=== PATIENT | female | born 1990 | race American Indian/Alaskan Native ===

== ENCOUNTER 2021-06-01 09:57 | Emergency (ER) | payer MEDICAID ==
[2021-06-01] MEDS ORDERED: SODIUM CHLORIDE 0.9% 1000 ML 2,000 ML IV ONE (12:08)
[2021-06-01] MEDS ORDERED: METOCLOPRAMIDE 10 MG/2 ML INJ IV ONE (12:08)
[2021-06-01] MEDS ORDERED: MORPHINE 4 MG/1 ML INJ IV ONE (12:08)
--- NOTE | 2021-06-01 12:09 | Emergency Department Report ---
ED N/V/D HPI - General Chief complaint: Nausea/Vomiting/Diarrhea Stated complaint: N/V Time Seen by Provider: 06/01/21 11:42 Source: patient, EMS Mode of arrival: Stretcher Limitations: No Limitations - History of Present Illness Initial comments: 30-year-old female who has a past medical history of diabetes and history of DKA presents to the ER via EMS with complaints of nausea and vomiting. Patient states that symptoms started yesterday. Patient states that she went to [facility] for symptoms yesterday, she was treated in the ER and given IV meds and fluids. She states that she was told she has hyperglycemia but she was not in DKA and was discharged home. She states that she was not prescribed anything to go home with. She states that when she left the hospital she was feeling better, but she stated that her symptoms started again this morning with nausea, vomiting and she is also been having diarrhea since yesterday. She also reports diffuse abdominal pain. She denies any fever or chills at home. She denies any ill contacts, bad food intake or recent antibiotic use. She status post C-sections but no other abdominal surgeries. Denies any illicit drug use or alcohol abuse. MD complaint: nausea, vomiting, diarrhea, abdominal pain -: days(s) (1) - Related Data Previous Rx's Medication Instructions Recorded Last Taken Type Ondansetron [Zofran Odt] 4 mg PO Q8HR #15 tab.rapdis 06/01/21 Unknown Rx Promethazine HCl [Phenergan SUPPOS] 25 mg RC Q6HR #20 supp.rect 06/01/21 Unknown Rx Allergies Allergy/AdvReac Type Severity Reaction Status Date / Time No Known Allergies Allergy Unverified 06/01/21 09:59 ED Review of Systems ROS: Stated complaint: N/V Other details as noted in HPI Comment: All other systems reviewed and negative Constitutional: malaise, weakness. denies: chills, fever ENT: as per HPI. denies: ear pain, throat pain, dental pain, hearing loss, epistaxis, congestion Respiratory: denies: cough, shortness of breath, wheezing Gastrointestinal: abdominal pain, nausea, vomiting, diarrhea. denies: constipation, hematemesis, melena, hematochezia Genitourinary: denies: urgency, dysuria, discharge Musculoskeletal: denies: back pain, joint swelling, arthralgia Neurological: as per HPI, weakness. denies: numbness, paresthesias, confusion, abnormal gait, vertigo Psychiatric: denies: anxiety, depression, auditory hallucinations, visual hallucinations, homicidal thoughts, suicidal thoughts Hematological/Lymphatic: denies: easy bleeding, easy bruising, swollen glands ED Past Medical Hx - Medications Home Medications: Home Medications Medication Instructions Recorded Confirmed Last Taken Type Ondansetron [Zofran Odt] 4 mg PO Q8HR #15 tab.rapdis 06/01/21 Unknown Rx Promethazine HCl [Phenergan SUPPOS] 25 mg RC Q6HR #20 supp.rect 06/01/21 Unknown Rx ED Physical Exam - General Limitations: No Limitations General appearance: alert, in distress (Patient appears uncomfortable, she is actively pacing in the room and vomiting.) - Head Head exam: Present: atraumatic, normocephalic, normal inspection - Eye Eye exam: Present: normal appearance, PERRL, EOMI Pupils: Present: normal accommodation - ENT ENT exam: Present: mucous membranes dry - Neck Neck exam: Present: normal inspection, full ROM - Respiratory Respiratory exam: Present: normal lung sounds bilaterally. Absent: respiratory distress, wheezes, rales, rhonchi - Cardiovascular Cardiovascular Exam: Present: regular rate, normal rhythm, normal heart sounds - GI/Abdominal GI/Abdominal exam: Present: soft. Absent: distended, tenderness, guarding, rebound - Neurological Exam Neurological exam: Present: alert, oriented X3, CN II-XII intact, normal gait - Psychiatric Psychiatric exam: Present: normal affect, normal mood - Skin Skin exam: Present: intact ED Course Vital Signs 06/01/21 06/01/21 09:59 17:33 Temperature 98.0 F 98.4 F Pulse Rate 51 L 70 Respiratory 18 16 Rate Blood Pressure 143/60 110/62 [Left] O2 Sat by Pulse 100 100 Oximetry ED Medical Decision Making - Lab Data Result diagrams: 06/01/21 12:29 06/01/21 12:29 - Medical Decision Making 1554: Patient reports feeling somewhat better after meds and IV fluids. She has not had any vomiting since receiving medications. She was able to tolerate ice chips. Is currently laying down comfortably on the bed. She is not toxic or significantly ill-appearing. She is not in any significant distress. She has a nonsurgical abdominal exam. She is neurologically intact with a normal gait. All labs reviewed --white count normal, her work-up does not suggest DKA, no significant electrolyte abnormalities or significant dehydration, renal functions and liver functions are normal. Her urinalysis shows yeast but otherwise suggests more contamination than a true UTI. Reflex culture was orde red by labs and is pending. hCG is negative. Patient is hemodynamically stable. Her vital signs are stable. Discussed all lab results, suspected diagnosis and treatment plan with patient. She will be discharged home with antiemetics. She was encouraged to follow-up closely with her PCP but she understands to return to the ER if her symptoms worsens in any way. Critical care attestation.: If time is entered above; I have spent that time in minutes in the direct care of this critically ill patient, excluding procedure time. ED Disposition Clinical Impression: Gastroparesis, Gastroenteritis Disposition: 01 HOME / SELF CARE / HOMELESS Is pt being admited?: No Does the pt Need Aspirin: No Condition: Stable Instructions: Viral Gastroenteritis, Adult, [id number], Gastroparesis, Polk Diet Additional Instructions: I recommend taking the zofran as prescribed to help with nausea and vomiting. You can also use the Phenergan suppository for additional nausea vomiting contro l your Zofran is not working. You can take Imodium [id number] for any diarrhea. I recommend that you continue to try to drink lots of fluids. You can follow the bland diet instructions listed on the discharge instructions. Follow- up closely with your PCP next week. Return to the ER for symptoms worsens in any way. Prescriptions: Promethazine HCl [Phenergan SUPPOS] 25 mg RC Q6HR #20 supp.rect Ondansetron [Zofran Odt] 4 mg PO Q8HR #15 tab.rapdis Referrals: PRIMARY CARE [Primary Care Provider] - 3-5 Days Forms: Work/School Release Form(ED) Time of Disposition: 15:51
[2021-06-01 12:47] LABS: Basophils % (Auto) 0.4 % (0.0-1.8); Hematocrit 40.8 % (30.3-42.9); Hemoglobin 12.9 gm/dl (10.1-14.3); Lymphocytes # (Auto) 0.9 K/mm3 (1.2-5.4); Lymphocytes % (Auto) 15.9 % (13.4-35.0); Mean Corpuscular HGB Conc 32 % (30-34); Mean Corpuscular Volume 97 fl (79-97); Monocytes # (Auto) 0.5 K/mm3 (0.0-0.8); Monocytes % (Auto) 8.1 % (0.0-7.3); Platelet Count 286 K/mm3 (140-440); Red Blood Count 4.23 M/mm3 (3.65-5.03)
[2021-06-01 13:04] LABS: Alanine Aminotransferase 11 units/L (7-56); Albumin 3.5 g/dL (3.9-5); Blood Urea Nitrogen 15 mg/dL (7-17); Calcium 9.1 mg/dL (8.4-10.2); Hemolysis Index 104
[2021-06-01 13:14] LABS: BUN/Creatinine Ratio 21
[2021-06-01 15:25] LABS: Bacteria,Urine 1+ /HPF (Negative); Bilirubin,Urine NEG (Negative); Blood,Urine NEG (Negative); Color,Urine Yellow (Yellow); Mucus,Urine 2+ /HPF; Urobilinogen,Urine < 2.0 mg/dL (<2.0)
[2021-06-01 15:26] LABS: HCG Qualitative,Urine Negative (Negative)
[2021-06-01] MEDS ORDERED: FLUCONAZOLE 100 MG TAB PO ONE (16:00)
[2021-06-01 17:39] VITALS: BP 110/62
== END 2021-06-01 17:41 | disposition home or self-care (01) ==
LOC: ED 09:57
DX: K31.84 Gastroparesis (principal); K52.9 Noninfective gastroenteritis and colitis, unspecified; Z79.899 Other long term (current) drug therapy
CPT/HCPCS: 36415; 80053; 81001; 81025; 82805; 83690; 85025; 87086; 96361; 96374; 96375; 99284; J2270; J2765; J7030; Q0162